=== PATIENT | male | born 1945 | race Caucasian/White ===

== ENCOUNTER 2016-09-29 11:12 | Inpatient (IN) | payer MEDICARE, OTHER ==
[~2016-09-29] VITALS: Ht 180.3 cm; Wt 102.3 kg
--- NOTE | ~2016-09-29 | CATH ---
Cardiac Diagnostic Report Demographics Patient Name JAZMYNE Richardson Gender Male Date of 1945 Age 71 year(s) Patient Number [id number] Date of Study 09/30/2016 Visit Number [id number] Room Number G6324 [place] [id number] Ht 180.34 cm Wt 110.22 kg Referring Cecelia Welsh Primary Physician Physician PA Performing Madina Joaquin MD Secondary Physician Physician Diagnostic Madina Joaquin MD Assisting Physician Physician Interventional Physician Artists' Booking Representative Physician Findings and Conclusions Diagnostic Findings and Conclusion Unable to cannulate ostium of RCA. This originates near the ostium of the left main. Diagnostic Recommendations CT surgery consult Procedure Description The patient was brought to the diagnostic cardiac catheterization-EP laboratory in the fasting, non-sedated state. Informed consent was obtained in the written and verbal form after the risks and benefits were explained. The patient had no further questions and agreed to proceed. The planned puncture-incision site(s) were shaved and prepped with Chloroprep and draped in the usual sterile manner. Conscious sedation and pain control medications were delivered by a registered nurse under physician guidance. Surface ECG rhythm, blood pressure measurement, and pulse oximetry were monitored throughout the procedure. A guiding catheter was used to attempt to intubate the vessel. Multiple unsuccessful attempts were made and procedure was aborted. Hemostasis: The sheath was removed and a closure device was placed. Hemostasis was achieved. The patient was transferred to the nursing floor with continuous monitoring via cart accompanied by a nurse. The patient left the laboratory in stable condition. Diagnostic Cath Status: Urgent Procedure Procedure Type Diagnostic procedure:Angiography:, Coronary Angios Indications: NSTEMI. The procedure was explained in detail to the patient. Risks, complications and alternative treatments were reviewed. Written consent was obtained. Medications Reviewed with Patient prior to Procedure. Procedure Data Procedure Date Date: 09/30/2016Start: 01:58 PMEnd: 03:04 PM Entry Locations - Retrograde Percutaneous access was performed through the Right Femoral artery (Primary location). A 6 Fr sheath was inserted. Hemostasis was successfully obtained using Perclose ProGlide (Paz). Closure Comments: deployed by rosa elena . Procedure Medications Order and Administration + + +-------+------+ !Time !Medication !Dosage !Route ! + + +-------+------+ !09/30/2016 02:12 PM !Fentanyl !50 mcg !I.V. ! + + +-------+------+ !09/30/2016 02:20 PM !Versed !1 mg !I.V. ! + + +-------+------+ Devices Used - A6 Fr. 3DRC JJ Guide Catheterwas used for:RCA Intervention. - A6FR ART 3.5 [facility] GUIDE CATH ()was used for:Right coronary angiography. - ACATH 6F AL2 CATHETER 100CMwas used for:RCA Intervention. - A6 Fr. AL1 Guide Catheterwas used for:RCA Intervention. - A6 Fr. XB 3.5 Guide Catheterwas used for:RCA Intervention. - A6 Fr. JL 4 JJ Guide Catheterwas used for:RCA Intervention. - A6 Fr. AL .75 JJ Guide Catheterwas used for:RCA Intervention. Contrast Material - Isovue 633724 ml Fluoroscopy Time: Diagnostic: 23:48 minutes. Total: 23:48 minutes. Fluoroscopy Dose: Diagnostic: 2047 mGy. Total: 2047 mGy. Estimated Blood Loss: 4 ml. Additional ACC PCI Information PCI Indication:PCI for high risk Non-STEMI or unstable angina. Medical History Performed Procedures and Imaging Results - No ACC stress or imaging studies were performed. Allergies - No known allergies. Risk Factors The patient risk factors include:prior PCI on 08/03/2010;obesity, physical activity, hypercholesterolemia, hypertension, last creatinine: 1 mg/dl, creatinine clearance: 102.57 ml/min and dyslipidemia. Admission Data Admission Date: 09/29/2016 Admission Time: 11:12 AM Admit Source: [facility] Insurance Payors: Medicare. Admission Medications + +------+-------+ + + + + !Medication!Dosage!Times !Last !Last !Administered !Comments ! ! ! !Per Day!Delivery !Delivery ! ! ! ! ! ! !Date !Time ! ! ! + +------+-------+ + + + + !Statin ! ! ! ! ! ! ! !(any) ! ! ! ! ! ! ! + +------+-------+ + + + + !Aspirin ! ! ! ! ! ! ! !(any) ! ! ! ! ! ! ! + +------+-------+ + + + + Clinical Evaluation Leading to Procedure - The patient's CAD presentation was assessed as: Non-STEMI.The symptom onset was first noted on 09/29/2016 09:00 AM(time was estimated). - The patient's anginal syndrome during the past two weeks was assessed as: Class IV according to the [place] Cardiovascular Society Classification System (CCS). Hemodynamics Condition: Rest O2 Consumption: Estimated: 263.33Heart Rate: 69 bpm Pressures (mmHg) +-----+ + !Site !Pressure ! +-----+ + !AO !138/76 (103) ! +-----+ + Shunts Oxygen Values O2 Capacity 198.56 O2 Consumption 263.33 Discharge Data Discharge Date: 10/07/2016 Hospital Status: Inpatient Signatures dtt: Jemal Painter (cardio) dtd: 09/30/16 1358 Physician Self Edit
--- NOTE | ~2016-09-29 | ENPV ---
Vascular Lower Extremity Vein Mapping Procedure Demographics Patient Name CRISTINE SAMANO Date of Study 10/02/2016 Patient Number [id number] Gender Male Date of 1945 Age 71 Visit Number [id number] Height 71 Accession Number [id number] Weight 243 Referring Karin Andino MD Physician Physician Physician Ordering Physician Photo Lab Manager Tobacco Shaker Chichi Okeefe [facility] Conclusions Summary Greater Saphenous vein patent and appropriate for harvest bilaterally Procedure Type of Study: Veins:Lower Extremity Vein Mapping, Vein Mapping NH. Indications for Study:Pre-op CABG. Appropriate Use Criteria:8 Allergies - No known allergies. Patient Status:Routine. Study Location:Inpatient Portable. Technical Quality:Adequate visualization. Risk Factors - The patient's risk factor(s) include: dyslipidemia, obesity, lack of physical activity and arterial hypertension. - The patient's last creatinine was 1 mg/dl. Velocities are measured in cm/s ; Diameters are measured in cm + ++--------++--------+ !Superficial - Great Saphenous Vein !!Right !!Left ! + ++--------++--------+ !Location !!Diameter!!Diameter! + ++--------++--------+ !Sapheno Femoral Junction !!0.41 !!0.47 ! + ++--------++--------+ !GSV High Thigh !!0.43 !!0.45 ! + ++--------++--------+ !GSV Mid Thigh !!0.43 !!0.43 ! + ++--------++--------+ !GSV Low Thigh !!0.29 !!0.44 ! + ++--------++--------+ !GSV Knee !!0.24 !!0.32 ! + ++--------++--------+ !GSV High Calf !!0.25 !!0.29 ! + ++--------++--------+ !GSV Mid Calf !!0.2 !!0.28 ! + ++--------++--------+ !GSV Low Calf !!0.2 !! ! + ++--------++--------+ Signature dtt: CAROLIN DUNN dtd: 10/02/16 1248 Physician Self Edit
--- NOTE | ~2016-09-29 | HP ---
PATIENT'S NAME: CRISTINE SAMANO [facility] AGE: 71 Y [address] ROOM: [address] [place] [address] LOCATION: GPCU ADMIT DATE: 09/29/2016 History & Physical DISCHARGE DATE: FAMILY PHYSICIAN: Physician, Unknown ATTENDING PHYSICIAN: Jemal Painter DATE OF SERVICE: HISTORY OF PRESENT ILLNESS: This is a 71-year-old male who normally follows cardiology care with Dr. Jemal Painter for his history of coronary artery disease with a previous stent placed to his LAD in 2010 as well as paroxysmal atrial fibrillation with sotalol and Pradaxa use and hypertension and hyperlipidemia. The patient awoke this morning with complaints of sharp substernal chest pain with radiation noted to his back and his left arm. Due to this pain which did persist he presented to the emergency department in [place], [place] and was found to be having an inferior ST elevated myocardial infarction with ST elevations noted in leads II, III, and aVF. Due to his concerning symptoms and EKG changes, plan was made to transfer him to [facility] for coronary percutaneous intervention. He did complain also of some nausea and diaphoresis associated with his chest pain especially when he was in the emergency department at [place]. Also of note, he has been having recovery from a recent upper respiratory infection and is currently completing antibiotics. When questioned about his chest pain symptomatology, he states he had no chest pain of this sort prior to his previous coronary stenting. He admitted to only having fatigue and shortness of breath prior to his LAD stenting in 2010. At the time of this dictation, the patient is currently status post selective coronary angiography without intervention. He is pain-free and did have ST resolution noted with IV heparin as well as Integrilin. Plan is to proceed with coronary intervention in the morning to the RCA by Dr. Jemal Painter. PAST MEDICAL HISTORY: 1. Coronary artery disease with LAD stenting in 2010. 2. Hypertension. 3. Hyperlipidemia. 4. Paroxysmal atrial fibrillation with long-term anticoagulation on Pradaxa. 5. Nocturnal hypoxemia with previous sleep study but does not currently have a CPAP machine. 6. Previous kidney stones. 7. Joint stiffness and osteoarthritis. 8. GERD. 9. Insomnia. PAST SURGICAL HISTORY: 1. Coronary artery stenting. [facility] AGE: 71 Y [address] ROOM: G6[address] [place], [place] [address] LOCATION: GPCU ADMIT DATE: 09/29/2016 History & Physical DISCHARGE DATE: FAMILY PHYSICIAN: Physician, Unknown ATTENDING PHYSICIAN: Jemal Painter 2. Tonsillectomy. 3. Inguinal hernia repair. 4. Cystoscopy for kidney stones. 5. Cholecystectomy. 6. Right foot surgery after a lawnmower accident. 7. Left total knee arthroplasty. FAMILY HISTORY: The patient's mother had a history of hypothyroidism and is still alive at the age of 99. His father had a history of myocardial infarction as well as liver cancer. He has one sister with a history of brain tumor. SOCIAL HISTORY: The patient denies ever using tobacco. He also denies alcohol or illicit drug use. HOME MEDICATIONS: 1. Aspirin 81 mg p.o. daily. 2. Lumigan 0.01% intraophthalmically to both eyes daily in the evening. 3. Vitamin D3, 400 units p.o. daily. 4. Pradaxa 150 mg p.o. twice daily. 5. Doxycycline 100 mg p.o. twice daily for two weeks and was started on 09/16/2016. 6. Lisinopril 10 mg p.o. daily. 7. Fish oil 300 mg p.o. daily. 8. Prilosec 20 mg p.o. twice daily. 9. Zoloft 50 mg p.o. daily. 10. Betapace 120 mg p.o. daily in the evening. 11. Betapace 80 mg p.o. daily in the morning. 12. Flomax 0.4 mg p.o. daily. 13. CoQ10, 200 mg p.o. daily. 14. Ocuvite 1 tablet p.o. daily. 15. Ambien 10 mg p.o. daily in the evening. MEDICATION ALLERGIES: Include penicillin and sulfa, which causes stomach cramps. REVIEW OF SYSTEMS: Pertinent positive review of systems listed in the HPI. All other review of systems evaluated and negative. PHYSICAL EXAMINATION: VITAL SIGNS: Temperature 98.0, pulse 66, respirations 16, blood pressure 164/86, O2 saturation 95% on room air. The patient weighs 102.9 kg. SKIN: [place], warm, and dry. PATIENT'S NAME: CRISTINE SAMANO [facility] AGE: 71 Y [address] ROOM: [address] [place], [place] [address] LOCATION: GPCU ADMIT DATE: 09/29/2016 History & Physical DISCHARGE DATE: FAMILY PHYSICIAN: Physician, Unknown ATTENDING PHYSICIAN: Jemal Painter EYES: Sclerae clear. No xanthelasmas. ENT: Oral mucosa is pink and moist. No jugular venous distention or carotid bruits. CHEST: Respirations are even and unlabored. Lungs are clear to auscultation. HEART: Regular rate and rhythm. Normal S1, S2. No murmurs, rubs, or gallops. ABDOMEN: Soft and nontender. MUSCULOSKELETAL: Gait is normal. EXTREMITIES: Peripheral pulses palpable. No clubbing, cyanosis, or edema. PSYCH: Alert and oriented. Mood and affect are appropriate. IMPRESSION AND PLAN: Per Dr. Montgomery. 1. Acute inferior ST elevated myocardial infarction. The patient was unable to receive intervention to his right coronary artery lesion due to his RCA originating from the left. Plan will be to proceed with a repeat catheterization with possible percutaneous intervention in a.m. by Dr. Jemal Painter who once again is his primary post acute care registered nurse. The patient will be continued on heparin drip per ACS protocol, and we will trend cardiac enzymes including CPK, CK-MB, and troponin every 6 hours x4 values. We will check another EKG in the a.m. and start him on Brilinta 90 mg p.o. twice daily, aspirin 81 mg daily, Lipitor 80 mg p.o. daily. Of note, the patient does have an intolerance to statins that cause muscle aches. We will fully evaluate the patient for his history of myalgias and attempt to find a statin that works well for his coronary artery disease as well as prevents symptoms. We will also collaborate with Dr. Jemal Painter in attempting to facilitate this medication management. We will check another lipid panel in the a.m. as well as a TSH and a proBNP. 2. Coronary artery disease with a history of LAD stenting. 3. Hypertension. 4. Hyperlipidemia. 5. Paroxysmal atrial fibrillation. The patient is currently in a sinus rhythm. He does continue to take his sotalol and did take his anticoagulant Pradaxa this morning. We will hold his Pradaxa for now since we are continuing his heparin drip for anticoagulation. The care of this patient will be taken over in the a.m. by Dr. Jemal Painter. We will continue to monitor, evaluate, and treat as appropriate until that transition of care has occurred. Thank you for allowing [facility] to interact in the care of this patient. PATIENT'S NAME: CRISTINE SAMANO [facility] AGE: 71 Y [address] ROOM: G[address] [place], [place] [address] [facility] AD[facility] DATE: 09/29/2016 History & Physical DISCHARGE DATE: FAMILY PHYSICIAN: Physician, Unknown ATTENDING PHYSICIAN: Jemal Painter LINDA SERRATO APRN FOR VIRIDIANA-MD SHERRIE CHAVARRIA/janetl /[id number] D: [id number] T: [id number] HISTORY & PHYSICAL
--- NOTE | ~2016-09-29 | DS ---
PATIENT'S NAME: CRISTINE SAMANO [facility] AGE: 71 Y [address] ROOM: G[address] [place], [place] [address] LOCATION: GPCU ADMIT DATE: 09/29/2016 Discharge Summary DISCHARGE DATE: 10/07/2016 FAMILY PHYSICIAN: Reji Moses MD ATTENDING PHYSICIAN: Jamie Calle The patient is a 71-year-old white male who is followed by Dr. Painter secondary to his history with coronary artery disease with previous percutaneous intervention and stenting as well as paroxysmal atrial fibrillation. The patient was transferred here after presenting to the [place] Department with an acute inferior ST-elevated myocardial cardial infarction. Dr. Montgomery was on-call. The patient went to the catheterization lab with Dr. Montgomery for possible intervention. Dr. Montgomery did attempt intervention to the right coronary artery. However, the RCA originated from the left, and he was unable to proceed. The patient was transferred up to the progressive care floor on the ACS protocol with plans for Dr. Painter to proceed with catheterization the following morning for possible percutaneous intervention. Once again, intervention to the RCA was attempted and failed. Therefore, Dr. Calle was asked to see the patient in consultation for coronary artery bypass grafting consisted of one vessel bypass to the RCA. On 10/03/2016, the patient was taken to the operative suite by Dr. Calle for a single-vessel bypass with a reverse saphenous vein graft to the posterior descending artery performed in an off pump fashion. The patient tolerated the surgery without complication. He was transferred to the ICU following the procedure. He was extubated without difficulty on the same operative day. On postoperative day 1, the patient's lines were discontinued, and he was transferred to the progressive care floor. The patient worked with cardiac rehab for strengthening purposes. His chest tubes, pacemaking wires, and Maguire catheter were discontinued in the routine postoperative timeframe. The patient was restarted on his Pradaxa secondary to his chronic atrial fibrillation as well as his sotalol. The patient was noted to have a right forearm phlebitis. Antibiotic therapy was started empirically. The patient did have short runs of on and off atrial fibrillation, but overall remained in sinus rhythm with premature atrial contractions. He had no healing complications. He was found stable for discharge on 10/07/2016. The patient requested no home health services or skilled stay. The patient was discharged on 10/07/2016. DISCHARGE ORDERS: Include a cardiac prudent diet. Activity levels with no pulling, pushing, or lifting heavier than 10 pounds until November 14, 2016. The patient will start cardiac rehab in his area in a couple of weeks. He will follow up with Dr. Calle and Dr. Painter in 2 weeks on the same day. PATIENT'S NAME: CRISTINE SAMANO [facility] AGE: 71 Y [address] ROOM: G[address] [place], [place] [address] LOCATION: GPCU ADMIT DATE: 09/29/2016 Discharge Summary DISCHARGE DATE: 10/07/2016 FAMILY PHYSICIAN: Reji Moses MD ATTENDING PHYSICIAN: Jamie Calle FINAL DIAGNOSES: Include, 1. ST-elevation myocardial infarction. 2. Hypertension. 3. Dyslipidemia. 4. Paroxysmal atrial fibrillation, long-term anticoagulation, high-risk medications. 5. Obstructive sleep apnea - not using CPAP. 6. Myalgias, on statins. HOME MEDICATIONS: 1. Ambien 10 mg q.h.s. 2. Pradaxa 150 mg twice a day. 3. Zoloft 50 mg daily. 4. Lisinopril 2.5 mg daily. 5. Betapace 80 mg twice a day. 6. Flomax 0.4 mg daily. 7. Lumigan 0.01% one drop nightly each eye. 8. Aspirin 81 mg daily. 9. CoQ10, 200 mg daily. 10. Vitamin D 400 units daily. 11. Prilosec 20 mg twice a day. 12. Ocuvite one capsule daily. 13. Fish oil 300 mg daily. 14. Keflex 500 mg 3 times a day. 15. Colace 100 mg twice a day. 16. Lasix 40 mg daily. 17. Potassium chloride 20 mEq twice a day. 18. [place] 5/325 one to two every 4 to 6 hours as needed. The patient and verbalized understanding of the discharge orders. The patient was discharged to home in stable condition. DENILSON JOSHI APRN FOR JAMIE CALLE DO DLQ/modl /[id number] d: 10/21/16 0343 t: 10/24/16 1435, DISCHARGE SUMMARY
--- NOTE | ~2016-09-29 | OR ---
PATIENT'S NAME: CRISTINE TIJERINA [facility] AGE: 71 Y [address] ROOM: G[address] [place], [place] [address] LOCATION: GPCU ADMIT DATE: 09/29/2016 OR/Procedure Report DISCHARGE DATE: FAMILY PHYSICIAN: Reji Moses MD ATTENDING PHYSICIAN: Jemal Painter SURGEON: Jamie Frazier DO VINEYARD TENDER: DATE OF PROCEDURE: 10/03/2016 PREOPERATIVE DIAGNOSIS: Right coronary artery disease with failed percutaneous intervention. POSTOPERATIVE DIAGNOSIS: Right coronary artery disease with failed percutaneous intervention. PROCEDURE: Single vessel bypass with reverse saphenous vein graft to the posterior descending artery performed in an off pump fashion. BRIEF HISTORY: Mr. Tijerina is a 71-year-old white male with a history of coronary artery disease. He presented to [facility] with acute ST-segment myocardial infarction secondary to the right coronary artery. He was taken to the cathode washer in a code STEMI fashion. Dr. Montgomery performed the 1st catheterization on the , however, was unsuccessful in opening of the right coronary artery. He was admitted to the floor, maintained on a heparin drip, and Dr. Painter attempted another catheterization on the right coronary artery and again was unsuccessful; therefore, we were asked to perform single vessel bypass. DESCRIPTION OF PROCEDURE: The patient had been brought to the operative suite today, sterilely prepped and draped in usual fashion. A sternal incision was made, and the sternum was divided in midline with a sternal saw. The pericardium was then opened and the right coronary system inspected. There was no evidence of dissection in epicardial fat. The coronary artery, however, was diffusely diseased and this disease extended onto the inferior wall of the heart and into the bifurcation. The posterior descending artery appeared suitable for grafting, however, I did not feel that the right internal mammary artery would reach this and therefore we harvested a single segment of the vein endoscopically from the lower extremity during this time. A pericardial well was created, and once of the vein was harvested, heparin was given. The vein was then prepared for bypass. Off-pump retractor/stabilizer was placed over the posterior descending artery. The patient was placed into a Trendelenburg position to facilitate visualization and retracted tapes were used to isolate the artery. The artery was then opened and #2 shunt placed. The retractor tapes were then removed and flow was resumed. We then anastomosed the vein graft to the coronary artery in an PATIENT'S NAME: CRISTINE TIJERINA [facility] AGE: 71 Y [address] ROOM: G[address] [place], [place] [address] LOCATION: GPCU ADMIT DATE: 09/29/2016 OR/Procedure Report DISCHARGE DATE: FAMILY PHYSICIAN: Reji Moses MD ATTENDING PHYSICIAN: Jemal Painter end-to-side fashion with 7-0 Prolene. With this nearly completed, the shunt was removed and the anastomosis was completed. The anastomosis was intact. The stabilizer was removed, and the heart returned to its anatomic position. The patient returned back to a supine position. We then utilized a 4.3 heartstring and 6-0 Prolene to anastomose the graft to the ascending aorta. When pulling the heartstring, it had been looped with 6-0 Prolene and this could not be removed without damage to the suture, therefore a partial occlusion clamp was removed what was placed, and we were re-did the anastomosis with 6-0 Prolene. Once this was completed, the partial occlusion clamp was removed. The vein graft was de-aired, Bulldogs removed, and distal flow was given. Distal sites and proximal sites were hemostatic. The patient tolerated the procedure well throughout. Two atrial and one ventricular temporary pacemaking wires were placed. Three chest tubes were placed, 1 in left pleural, 1 in posterior pericardial, 1 in anterior mediastinum, and the sternum was then approximated with ZipFix System. We then closed the soft tissues in a layered fashion. All sponge, instrument, and needle counts were correct. The patient was transferred to the Intensive Care Unit in stable condition. DO DANIKA VAIL/madi /[id number] d: 10/05/161853 t: 10/05/162040, OPERATIVE SUMMARY
--- NOTE | ~2016-09-29 | CATH ---
Cardiac Diagnostic Report Demographics Patient Name JAZMYNE Richardson Gender Male Date of 1945 Age 71 year(s) Patient Number [id number] Date of Study 09/29/2016 Visit Number [id number] Room Number G6306 [place] [id number] Ht 180.34 cm Wt 110.22 kg Referring Cecelia Blaise Primary Physician Physician ILIR Performing Efstratiou Secondary Physician Physician Sulma Camacho MD Diagnostic Efstratiou Assisting Physician Physician Sulma Camacho MD Interventional Physician Senior Mobile Developer Physician Findings and Conclusions Diagnostic Findings and Conclusion Culprit for STEMI is RCA that has recanalized with heparin and integrillin. 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 Previous LAD stents are patent. Diagnostic Recommendations PCI to RCA. Unable to cannulate RCA from a radial approach. Heparin and Brilinta overnight. Attempt by groin approach in morning. Procedure Description The patient was brought to the diagnostic cardiac catheterization-EP laboratory by emergency personal. Physician deemed procedure as EMERGENT. The planned puncture-incision site(s) were shaved and prepped with ChloraPrep and draped in the usual sterile manner. Supplemental oxygen was delivered by a registered nurse under physician guidance. Surface ECG rhythm, blood pressure measurement, and pulse oximetry were monitored throughout the procedure. Arterial access. The access site was infiltrated with lidocaine. The vessel was entered with the Seldinger technique. A sheath was advanced into the vessel and used for catheter placement. Selective left coronary angiography. A catheter was advanced into the left coronary vessel ostium under Fluoroscopic guidance. Contrast was injected by hand. Images were obtained in multiple projections. Selective right coronary angiography. A catheter was advanced into the right coronary vessel ostium under fluoroscopic guidance. Contrast was injected by hand. Images were obtained in multiple projections. Arterial artery hemostasis was achieved. The patient was transferred to PCU via bed accompanied by a nurse. The patient left the laboratory in stable condition. Diagnostic Cath Status: Emergency Procedure Procedure Type Diagnostic procedure:Angiography:, Coronary Angios Indications: Acute inferior FL. Angiographic Findings Dominance: Right Cardiac Arteries and Lesion Findings LMCA: Patent. LAD: 20% proximal stenosis. Distal stents patent. 40% stenosis distal to stent. Patent diagonal. Lesion on Prox LAD: Proximal subsection.20% stenosis . Lesion on Dist LAD: Distal subsection.40% stenosis . Comments:Distal to existing stent. LCx: Lesion on Prox CX: Mid subsection.20% stenosis . Lesion on 1st Ob Abby: Mid subsection.30% stenosis . RCA: 90% mid stenosis. Ectopic origin from left coronary sinus. Lesion on Mid RCA: Mid subsection.90% stenosis .Culprit lesion. Coronary Tree Procedure Data Procedure Date Date: 09/29/2016Start: 12:24 PMEnd: 01:34 PM Entry Locations - Antegrade Percutaneous access was performed through the Right Radial artery (Primary location). A 6 Fr sheath was inserted. Unsuccessful closure attempt was performed using: a TR band. Hemostasis was successfully obtained using Mechanical Compression. Closure Comments: 10 ml of air in R. Band by Yanira Coronado. Procedure Medications Order and Administration + + +--------+ + !Time !Medication !Dosage !Route ! + + +--------+ + !09/29/2016 !Oxygen !2 l/min !NC ! !12:22 PM ! ! ! ! + + +--------+ + !09/29/2016 !PAE Radial Cocktail: Heparin 5000 units,! !I.A. ! !12:27 PM !Nitroglycerin 200mcg, Verapamil 3 mg ! ! ! ! !(ACC_3) ! ! ! + + +--------+ + !09/29/2016 !Heparin (ACC_3) !2000 !I.V. bolus! !12:41 PM ! !units ! ! + + +--------+ + !09/29/2016 !Brilinta (Ticagrelor) (ACC_20) !180 mg !P.O. ! !01:17 PM ! ! ! ! + + +--------+ + Devices Used - A6 Fr. BS JL 3.5 Diag. Catheterwas used for:Left coronary angiography. Comments: Able to cannulate RCA as well.. - A6 Fr. JJ 3DRC Diag. Catheterwas used for:RCA Intervention.Unable to cannulate the vessel. - A6 Fr. AL1 Guide Catheterwas used for:RCA Intervention.Unable to cannulate the vessel. - A6 Fr. JL3.5 Guide Catheterwas used for:RCA Intervention.Unable to cannulate the vessel. - A6 Fr. AR1 guide catheterwas used for:RCA Intervention.Unable to cannulate the vessel. - AGUIDE CATHETER 6FR MP 1 100CMwas used for:RCA Intervention.Unable to cannulate the vessel. - A6 Fr. BS JL 3.5 Diag. Catheterwas used for:RCA Intervention. Comments: Able to cannulate RCA as well.. - A6 Fr. JL3.5 Guide Catheterwas used for:RCA Intervention.Unable to cannulate the vessel. - A6 Fr. BS JR 4 Diag. Catheter. Comments: Discard.. Contrast Material - Isovue [id number] ml Fluoroscopy Time: Diagnostic: 24:30 minutes. Total: 24:30 minutes. Fluoroscopy Dose: Diagnostic: 1836 mGy. Total: 1836 mGy. Estimated Blood Loss: 10 ml. Medical History Allergies - No known allergies. Risk Factors The patient risk factors include:prior PCI on 08/03/2010;obesity, hypercholesterolemia, hypertension, last creatinine: 1.1 mg/dl, creatinine clearance: 93.24 ml/min and dyslipidemia. Admission Data Admission Date: 09/29/2016 Admission Time: 11:12 AM Admit Source: [facility] Insurance Payors: Medicare. Admission Medications + +------+-------+ + + + + !Medication!Dosage!Times !Last !Last !Administered !Comments ! ! ! !Per Day!Delivery !Delivery ! ! ! ! ! ! !Date !Time ! ! ! + +------+-------+ + + + + !Statin ! ! ! ! ! ! ! !(any) ! ! ! ! ! ! ! + +------+-------+ + + + + !Aspirin ! ! ! ! ! ! ! !(any) ! ! ! ! ! ! ! + +------+-------+ + + + + Clinical Evaluation Leading to Procedure - The patient's CAD presentation was assessed as: STEMI.The symptom onset was first noted on 09/29/2016 09:00 AM(time was estimated). Snapshots Hemodynamics Condition: Rest O2 Consumption: Estimated: 270.98Heart Rate: 78 bpm Pressures (mmHg) +-----+ + !Site !Pressure ! +-----+ + !AO !103/68 (84) ! +-----+ + !AO !129/70 (95) ! +-----+ + Shunts Oxygen Values O2 Capacity 214.88 O2 Consumption 270.98 Signatures dtt: Luz Montgomery dtd: 09/29/16 1224 Physician Self Edit
--- NOTE | ~2016-09-29 | ECHO ---
Transthoracic Echocardiography Report (TTE) Demographics Patient Name CRISTINE SAMANO Date of Study 10/02/2016 Patient Number [id number] Visit Number [id number] Date of 1945 Room Number G6214 Accession Number [id number] Gender Male Age 71 year(s) Referring Madina Joaquin MD Outsole Scheduler Jennifer Fowler RVT Physician Josué Hays APRN Physician Interpreting Madina Joaquin MD Diesel Truck Technician Physician Supervising Ordering Physician Sage Hays MD/JOSEP RAND Nurse Stress Locksmith Apprentice Conclusions Contractility Score Summary Normal Left Ventricular contractility was noted. Summary The estimated left ventricular ejection fraction is 60%. Mild concentric left ventricular hypertrophy. Diastolic assessment reveals Grade I diastolic dysfunction. Mildly dilated right ventricle. The right atrium is mildly dilated. IVC not visualized due to poor subcostal window. Trivial pulmonic valve regurgitation by color Doppler. Procedure Type of Study TTE procedure:2D Echocardiogram, M-Mode, Doppler , Color Doppler. Procedure Date Date: 10/02/2016 Start: 11:08 AM Study Location: Inpatient Portable Technical Quality: Adequate visualization Indications:Preop cardiac evaluation. Appropriate Use Criteria: 9 Patient Status: Routine HR: 64 bpm BP: 107/65 mmHg Allergies - No known allergies. M-Mode/2D Measurements LV Diastolic Dimension: 4.08 cm LV Systolic Dimension: 2.72 cm LV Septum Diastolic: 1.77 cm LV PW Diastolic: 1.5 cm AO Root Dimension: 2.7 cm Cardiac Output: 3.39 l/min AV Cusp Separation: 1.9 cm RV Diastolic Dimension: 3.53 cm LVOT: 2.1 cm LVOT VTI: 15.3 cm RV Base: 2.94 cm LV Stroke volume: 52.97 ml RV Length: 6.5 cm TAPSE: 2.57 cm TDI-S': 14.5 cm/s Doppler Measurements AV Peak Velocity: 1.37 m/s MV Peak E-Wave: 0.54 m/s AV Peak Gradient: 7.51 mmHg MV Peak A-Wave: 0.75 m/s AV Mean Gradient: 4 mmHg MV E/A Ratio: 0.73 LVOT Peak Velocity: 0.74 m/s MV P1/2t: 106 msec PV Peak Velocity: 0.66 m/s E' Septal Velocity: 0.06 m/s PV Peak Gradient: 1.75 mmHg E' Lateral Velocity: 0.07 m/s A' Septal Velocity: 0.09 m/s A' Lateral Velocity: 0.1 m/s Findings Left Ventricle Mild concentric left ventricular hypertrophy. Diastolic assessment reveals Grade I diastolic dysfunction. Right Ventricle Mildly dilated right ventricle. Left Atrium Normal left atrial size. Right Atrium The right atrium is mildly dilated. IVC not visualized due to poor subcostal window. Mitral Valve Trivial mitral regurgitation by color Doppler. Aortic Valve There is trivial aortic regurgitation by color Doppler. Tricuspid Valve Mild tricuspid regurgitation by color Doppler. Pulmonic Valve Mild pulmonic valve regurgitation by color Doppler. Pericardial Effusion No evidence of pericardial effusion. Miscellaneous Visualized portions of the aortic root and ascending aorta appear normal in size. Pleural Effusion No evidence of pleural effusion. Contractility Score LV regional wall motion:(0-Non visualized 1-Normal 2-Hypokinesis 3-Akinesis 4-Dyskinesis 5-Aneurysm) Signature dtt: Jemal Painter (cardio) dtd: 10/02/16 1108 Physician Self Edit
--- NOTE | ~2016-09-29 | OR ---
PATIENT'S NAME: CRISTINE SAMANO [facility] AGE: 71 Y [address] ROOM: [address] [place], [place] [address] LOCATION: GICU ADMIT DATE: 09/29/2016 OR/Procedure Report DISCHARGE DATE: FAMILY PHYSICIAN: Reji Moses MD ATTENDING PHYSICIAN: Jemal Painter SURGEON: Kirill Garcia MD AUDIOVISUAL TECHNICIAN: DATE OF PROCEDURE: 10/03/2016 PROCEDURES PERFORMED: 1. Right radial arterial line. 2. Central venous catheter. 3. Transesophageal echocardiography. INDICATIONS FOR PROCEDURE: The patient is undergoing coronary artery bypass grafting with need for IV access volume assessment, vasopressors oqkh-[id number] pressure monitoring, and evaluation of cardiac function. DESCRIPTION OF PROCEDURES: 1. The patient was identified in [facility]. The risks, benefits, and alternatives were explained to the patient. He wished to proceed. The right arm was extended out at 90 degrees. The radial artery was easily palpated. The area was cleaned with chlorhexidine 2%, and a 20-gauge Arrow catheter was inserted using the Seldinger technique with a single stick. Bright red pulsatile blood was found on return, and the catheter was secured into place. Complications; none. Blood loss; none. 2. After induction of general anesthesia, the patient was lying supine on the operating room table in slight Trendelenburg position. Maximal sterile barriers were worn all times. The right neck and chest were prepped with chlorhexidine 2%. A full body drape was placed. Sterile gloves, gown, and mask were worn. Ultrasound was used to visualize the right internal jugular vein. With a single stick and with ultrasound guidance, dark nonpulsatile blood was found on return. The wire was threaded without difficulty. The ultrasound was used to visualize the wire in the internal jugular vein. This skin nicked, dilated, and a 9- Icelandic, 10 cm catheter was placed and the wire removed. Complications; none. Blood loss; none. 3. After induction of general anesthesia, placement of central line, the transesophageal probe was placed atraumatically. Please see saved images and the report for further details. it showed a preserved ejection fraction around 55%. There was no pericardial effusion noted. The aortic valve was trileaflet with mild sclerosis. There was no aortic stenosis or aortic regurgitation, and the leaflets moved appropriately. The mitral valve had some trace regurgitation. Otherwise, no stenosis was noted. There is no atrial septal defect. There is no ventral septal PATIENT'S NAME: CRISTINE SAMANO [facility] AGE: 71 Y [address] ROOM: [place] [address] LOCATION: GICU ADMIT DATE: 09/29/2016 OR/Procedure Report DISCHARGE DATE: FAMILY PHYSICIAN: Reji Moses MD ATTENDING PHYSICIAN: Jemal Painter. There is minimal atherosclerosis of the ascending and aorta and the arch. Maximum ascending diameter was approximately 3.4 cm. The exam was unchanged after coronary artery bypass grafting. KIRILL GARCIA MD JJP/modl /[id number] d: 10/03/162052 t: 10/19/16 1053, OPERATIVE SUMMARY
--- NOTE | ~2016-09-29 | CON ---
PATIENT'S NAME: CRISTINE SAMANO [facility] AGE: 71 Y [address] ROOM: [place] [address] LOCATION: GPCU ADMIT DATE: 09/29/2016 Consultation DISCHARGE DATE: 10/07/2016 FAMILY PHYSICIAN: Reji Moses MD ATTENDING PHYSICIAN: Jamie Calle DATE OF CONSULTATION: 09/30/2016 REFERRING PHYSICIAN: Jamie Calle DO CONSULTATION NOTE REQUESTING PHYSICIAN: Luz Montgomery MD REASON FOR CONSULTATION: Single-vessel coronary artery disease. HISTORY OF PRESENT ILLNESS: The patient is a 71-year-old, white male, cardiac patient of Dr. Painter, who was transferred here from the [place] [facility] after having an acute inferior STEMI. The patient has a history of known coronary artery disease with previous stenting to the LAD back in 2010. The patient had woke up in the morning with sharp substernal chest pain with back and left arm radiation as well as nausea and diaphoresis. This prompted his presentation to the [place] [facility]. He was transferred under the care of Dr. Montgomery, who is covering Cardiology for [facility]. He was taken to the catheterization lab as a Code STEMI. Dr. Montgomery performed the cardiac catheterization on the day of transfer, however, he was unsuccessful in opening the right coronary system as it did originate from the left. The patient was then transferred up to the floor, maintained on a heparin drip, and on the following day, Dr. Painter attempted a further cardiac catheterization in order to intervene on the right coronary artery. This, however, was unsuccessful, and Dr. Calle was asked to see the patient in consultation for a single-vessel bypass. PAST MEDICAL HISTORY: Illnesses: 1. Coronary artery disease. 2. Paroxysmal atrial fibrillation. 3. High-risk medications with sotalol and Pradaxa. 4. Hypertension. 5. Dyslipidemia. 6. Osteoarthritis. 7. Nighttime hypoxia. 8. Also GERD. PATIENT'S NAME: CRISTINE SAMANO [facility] AGE: 71 Y [address] ROOM: [place] [address] LOCATION: GPCU ADMIT DATE: 09/29/2016 Consultation DISCHARGE DATE: 10/07/2016 FAMILY PHYSICIAN: Reji Moses MD ATTENDING PHYSICIAN: Jamie Calle PAST SURGICAL HISTORY: Surgery/Procedures: 1. Percutaneous intervention with stent to the LAD, 2010. 2. Tonsillectomy. 3. Inguinal hernia repair. 4. Cholecystectomy. 5. Left total knee arthroplasty. 6. Right foot surgery. ALLERGIES: WHICH ARE MORE INTOLERANCES ARE PENICILLIN, SULFA WHICH CAUSES STOMACH CRAMPS, AND STATINS FOR WHICH THE PATIENT HAS MYALGIAS. SOCIAL HISTORY: The patient is . He and his reside in [place]. 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 He is a nonsmoker and non-alcohol consumer. FAMILY HISTORY: His mother is still alive. She is 99 years old. She does have a history of hypothyroidism. His father had a history of heart disease including a myocardial infarction and from liver cancer. He had a sister with a brain tumor. MEDICATIONS: Please see medication administration record. REVIEW OF SYSTEMS: Pertinent positives are noted as per HPI. Other review of systems are otherwise reviewed and negative. PHYSICAL EXAMINATION: VITAL SIGNS: Blood pressure 125/71, heart rate 75, respirations 18, temperature 98.1, and O2 saturations 93%. Weight is 102.9 kg, height is 180.3 cm. GENERAL: He is very pleasant. In no acute distress. The patient appears his stated age. HEENT: Normocephalic with EOMIs intact. Conjunctivae clear. LUNGS: Clear to auscultation bilaterally. CARDIOVASCULAR: Regular rate and rhythm with no murmur detected. ABDOMEN: Soft, obese, and nontender by 4 quadrants with positive bowel sounds throughout. EXTREMITIES: No overt varicosities or edema. MUSCULOSKELETAL: Good range of motion to bilateral upper and lower extremities. PATIENT'S NAME: CRISTINE SAMANO [facility] AGE: 71 Y [address] ROOM: [place] [address] LOCATION: GPCU ADMIT DATE: 09/29/2016 Consultation DISCHARGE DATE: 10/07/2016 FAMILY PHYSICIAN: Reji Moses MD ATTENDING PHYSICIAN: Jamie Calle NEUROLOGIC: Alert and oriented. Strength is symmetrical. LABORATORY DATA: Laboratory and test results are as per HPI. IMPRESSION: 1. Acute inferior ST-elevation myocardial infarction. 2. Paroxysmal atrial fibrillation. 3. High-risk medications. RECOMMENDATIONS AND PLAN: Dr. Calle spoke to the patient and his family with regard to a single-vessel coronary artery bypass grafting surgery to the RCA utilizing a saphenous vein graft, possible MANUEL if it will reach. We will likely plan for an off-pump procedure. Risks and benefits of the surgery were discussed. Discussion of the risks include, but were not limited to, bleeding, requiring transfusion; return to the operative suite; myocardial infarction; cerebrovascular accident; renal and/or pulmonary failure. Also discussed were arrhythmias and infection as well as operative and postoperative mortality. The patient does consent to proceed with surgery. We will plan for the procedure on 10/03/2016. We would like to thank Dr. Montgomery and Dr. Painter for allowing us to participate in the care of this very pleasant gentleman. DENILSON JOSHI APRN FOR JAMIE CALLE, DLQ/modl /[id number] d: 10/14/16 2255 t: 10/19/16 1443, CONSULTATION REPORT
[2016-09-29 14:16] LABS: BASOPHIL # 0.1 K/uL (0.0-0.2); EOSINOPHIL # 0.2 K/uL (0.0-0.5); EOSINOPHIL % 2.1 %; HEMATOCRIT 45.6 % (37.0-53.0); HEMOGLOBIN 14.6 g/dL (11.0-16.0); IMMATURE GRANULOCYTE # 0.1 K/uL (0.0-0.3); IMMATURE GRANULOCYTE % 1.1 %; LYMPHOCYTE # 2.3 K/uL (0.8-4.0); MCH 29.1 pg (27.0-34.0); MONOCYTE # 0.8 K/uL (0.0-1.0); MONOCYTE % 8.6 %; MPV 10.6 fl (9.4-12.4); NEUTROPHIL # (ANC) 5.7 K/uL (1.4-9.0); NEUTROPHIL % 62.2 %; NRBC % 0 /100WBC (0-0.00); PLATELET COUNT 186 K/uL (150-450); RBC 5.01 M/uL (3.50-5.50); RDW-CV 14.5 % (11.9-14.6); WBC 9.1 K/uL (4.0-11.0)
[2016-09-29] MEDS ORDERED: DOXYCYCLINE100 MG (14:16)
[2016-09-29] MEDS ORDERED: AMBIEN10 MG PO (14:17)
[2016-09-29] MEDS ORDERED: PRADAXA150 MG PO (14:18)
[2016-09-29] MEDS ORDERED: ZOLOFT50 MG PO (14:26)
[2016-09-29] MEDS ORDERED: ZESTRIL2.5 MG PO (14:27)
[2016-09-29] MEDS ORDERED: BETAPACE (GENER80 MG PO (14:27)
[2016-09-29] MEDS ORDERED: FLOMAX0.4 MG PO (14:28)
[2016-09-29] MEDS ORDERED: BETAPACE (GENER80 MG (14:28)
[2016-09-29] MEDS ORDERED: LUMIGAN 0.01%2.5 ML OPHTH (14:29)
[2016-09-29] MEDS ORDERED: ASPIRIN LO-DOSE81 MG PO (14:31)
[2016-09-29] MEDS ORDERED: VITAMIN D-40400 UNIT PO (14:32)
[2016-09-29] MEDS ORDERED: COQ-10100 MG PO (14:32)
[2016-09-29] MEDS ORDERED: OCUVITE SOFTGE1 EACH PO (14:33)
[2016-09-29] MEDS ORDERED: PRILOSEC20 MG PO (14:33)
[2016-09-29] MEDS ORDERED: FISH OIL300 MG PO (14:34)
[2016-09-29 15:50] LABS: PTT > 260 SECONDS (23-30)
[2016-09-29 15:51] LABS: INR - (THERAPEUTIC) 1.1 (0.9-1.1)
[2016-09-29 18:35] LABS: ANION GAP 14.8 (10.0-19.0); BLOOD UREA NITROGEN 17 mg/dL (6-24); CALCIUM 8.5 mg/dL (8.5-10.5); CHLORIDE 108 mMol/L (96-110); CO2 22 mMol/L (22-32); CREATININE 0.9 mg/dL (0.6-1.3); ESTIMATED GFR (MDRD EQUATION) > 60; POTASSIUM 3.8 mMol/L (3.7-5.1); SODIUM 141 mMol/L (135-145)
[2016-09-30 07:03] LABS: BASOPHIL # 0.1 K/uL (0.0-0.2); EOSINOPHIL # 0.2 K/uL (0.0-0.5); HEMATOCRIT 39.6 % (37.0-53.0); IMMATURE GRANULOCYTE # 0.1 K/uL (0.0-0.3); LYMPHOCYTE # 1.9 K/uL (0.8-4.0); LYMPHOCYTE % 22.9 %; MCH 29.3 pg (27.0-34.0); MCHC 32.8 gm/dL (32.0-36.5); MCV 89.4 fl (83.0-98.0); MONOCYTE # 0.8 K/uL (0.0-1.0); MONOCYTE % 9.3 %; MPV 10.9 fl (9.4-12.4); NEUTROPHIL # (ANC) 5.1 K/uL (1.4-9.0); NEUTROPHIL % 62.8 %; NRBC % 0 /100WBC (0-0.00); PLATELET COUNT 170 K/uL (150-450); RBC 4.43 M/uL (3.50-5.50); RDW-CV 14.5 % (11.9-14.6); WBC 8.1 K/uL (4.0-11.0)
[2016-09-30 07:19] LABS: ALBUMIN 2.8 gm/dL (3.5-5.0); BLOOD UREA NITROGEN 16 mg/dL (6-24); CHLORIDE 111 mMol/L (96-110); CO2 23 mMol/L (22-32); ESTIMATED GFR (MDRD EQUATION) > 60; PHOSPHORUS 2.9 mg/dL (2.5-4.9); SODIUM 144 mMol/L (135-145)
[2016-09-30 07:38] LABS: ANION GAP 13.9 (10.0-19.0); POTASSIUM 3.9 mMol/L (3.7-5.1)
[2016-10-02 03:42] LABS: BASOPHIL # 0.1 K/uL (0.0-0.2); EOSINOPHIL # 0.3 K/uL (0.0-0.5); EOSINOPHIL % 4.2 %; HEMATOCRIT 36.5 % (37.0-53.0); HEMOGLOBIN 12.1 g/dL (11.0-16.0); IMMATURE GRANULOCYTE # 0.1 K/uL (0.0-0.3); IMMATURE GRANULOCYTE % 1.3 %; LYMPHOCYTE # 2.4 K/uL (0.8-4.0); LYMPHOCYTE % 34.4 %; MCH 29.7 pg (27.0-34.0); MCHC 33.2 gm/dL (32.0-36.5); MCV 89.5 fl (83.0-98.0); MONOCYTE # 0.7 K/uL (0.0-1.0); MPV 10.5 fl (9.4-12.4); NEUTROPHIL # (ANC) 3.4 K/uL (1.4-9.0); NEUTROPHIL % 49.1 %; NRBC % 0 /100WBC (0-0.00); PLATELET COUNT 165 K/uL (150-450); RBC 4.08 M/uL (3.50-5.50); RDW-CV 14.5 % (11.9-14.6); WBC 6.9 K/uL (4.0-11.0)
[2016-10-02 03:59] LABS: ANION GAP 13.4 (10.0-19.0); BLOOD UREA NITROGEN 13 mg/dL (6-24); CALCIUM 8.4 mg/dL (8.5-10.5); CHLORIDE 110 mMol/L (96-110); CO2 23 mMol/L (22-32); CREATININE 1.1 mg/dL (0.6-1.3); ESTIMATED GFR (MDRD EQUATION) > 60; POTASSIUM 3.4 mMol/L (3.7-5.1); SODIUM 143 mMol/L (135-145)
[2016-10-02 15:35] LABS: BICARBONATE 22.9 mmol/L (18.0-23.0); PCO2 37 mmHg (35-45)
[2016-10-02 15:42] LABS: PO2 49 mmHg (80-90)
[2016-10-02 18:03] LABS: BILIRUBIN URINE NEGATIVE (NEGATIVE); BLOOD URINE NEGATIVE /UL (NEGATIVE); COLOR URINE YELLOW (YELLOW); GLUCOSE URINE NEGATIVE (NEGATIVE); KETONE URINE NEGATIVE (NEGATIVE); LEUKOCYTES URINE NEGATIVE /UL (NEGATIVE); NITRITE URINE NEGATIVE (NEGATIVE); PROTEIN URINE NEGATIVE (NEGATIVE); TURBIDITY URINE CLEAR (CLEAR); UROBILINOGEN URINE NORMAL (NORMAL)
[2016-10-03 04:26] LABS: ALBUMIN 2.8 gm/dL (3.5-5.0); ALK PHOS 56 IU/L (33-138); ALT 44 IU/L (12-78); ANION GAP 11.7 (10.0-19.0); AST 42 IU/L (10-40); BLOOD UREA NITROGEN 17 mg/dL (6-24); CALCIUM 8.1 mg/dL (8.5-10.5); CHLORIDE 112 mMol/L (96-110); CO2 24 mMol/L (22-32); ESTIMATED GFR (MDRD EQUATION) > 60; POTASSIUM 3.7 mMol/L (3.7-5.1); SODIUM 144 mMol/L (135-145); TOTAL BILIRUBIN 0.6 mg/dL (0.0-1.5)
[2016-10-03 11:47] LABS: HEMATOCRIT 35.3 % (37.0-53.0); MCH 29.3 pg (27.0-34.0); MCHC 32.3 gm/dL (32.0-36.5); MCV 90.7 fl (83.0-98.0); MPV 10.9 fl (9.4-12.4); RBC 3.89 M/uL (3.50-5.50); RDW-CV 14.6 % (11.9-14.6); WBC 11.8 K/uL (4.0-11.0)
[2016-10-03 11:48] LABS: PLATELET COUNT 203 K/uL (150-450)
[2016-10-03 11:49] LABS: HEMOGLOBIN 11.4 g/dL (11.0-16.0)
[2016-10-03 12:12] LABS: BICARBONATE 22.2 mmol/L (18.0-23.0); PCO2 43 mmHg (35-45); PO2 243 mmHg (80-90)
[2016-10-03 12:13] LABS: POTASSIUM 4.1 mEq/L (3.7-5.1); SODIUM 138 mEq/L (135-145)
[2016-10-03 12:14] LABS: BICARBONATE 23.5 mmol/L (18.0-23.0); PCO2 43 mmHg (35-45); PO2 221 mmHg (80-90)
[2016-10-03 12:15] LABS: POTASSIUM 3.6 mEq/L (3.7-5.1); SODIUM 141 mEq/L (135-145)
[2016-10-03 12:27] LABS: INR - (THERAPEUTIC) 1.3 (0.9-1.1); PROTIME 14.4 SECONDS (9.1-10.7); PTT > 260 SECONDS (23-30)
[2016-10-03 12:52] LABS: BICARBONATE 22.5 mmol/L (18.0-23.0); PCO2 39 mmHg (35-45)
[2016-10-03 12:54] LABS: PO2 94 mmHg (80-90)
[2016-10-03 13:09] LABS: ANION GAP 12.8 (10.0-19.0); BLOOD UREA NITROGEN 15 mg/dL (6-24); CHLORIDE 110 mMol/L (96-110); CO2 23 mMol/L (22-32); CREATININE 0.9 mg/dL (0.6-1.3); ESTIMATED GFR (MDRD EQUATION) > 60; POTASSIUM 3.8 mMol/L (3.7-5.1); SODIUM 142 mMol/L (135-145)
[2016-10-03 15:07] LABS: PTT > 300 SECONDS (25-32)
[2016-10-03 15:08] LABS: INR - (THERAPEUTIC) 1.2 (0.9-1.1); PROTIME 12.8 SECONDS (9.6-11.1)
[2016-10-03 19:43] LABS: CALCIUM 8.5 mg/dL (8.5-10.5); MAGNESIUM 1.6 mg/dL (1.3-2.6); POTASSIUM 3.8 mMol/L (3.7-5.1)
[2016-10-04 03:57] LABS: BICARBONATE 24.8 mmol/L (18.0-23.0); PCO2 40 mmHg (35-45)
[2016-10-04 03:58] LABS: PO2 70 mmHg (80-90)
[2016-10-04 04:23] LABS: ANION GAP 10.9 (10.0-19.0); BLOOD UREA NITROGEN 12 mg/dL (6-24); CALCIUM 8.6 mg/dL (8.5-10.5); CHLORIDE 109 mMol/L (96-110); CO2 26 mMol/L (22-32); ESTIMATED GFR (MDRD EQUATION) > 60; POTASSIUM 3.9 mMol/L (3.7-5.1); SODIUM 142 mMol/L (135-145)
[2016-10-04 05:36] LABS: HEMATOCRIT 33.9 % (37.0-53.0); MCH 29.4 pg (27.0-34.0); MCHC 32.4 gm/dL (32.0-36.5); MCV 90.6 fl (83.0-98.0); MPV 11.4 fl (9.4-12.4); RBC 3.74 M/uL (3.50-5.50); RDW-CV 14.9 % (11.9-14.6); WBC 9.2 K/uL (4.0-11.0)
[2016-10-05 10:16] LABS: POTASSIUM 3.7 mMol/L (3.7-5.1)
[2016-10-06 05:01] LABS: BASOPHIL # 0.1 K/uL (0.0-0.2); BASOPHIL % 0.6 %; EOSINOPHIL # 0.4 K/uL (0.0-0.5); EOSINOPHIL % 3.6 %; HEMATOCRIT 32.5 % (37.0-53.0); HEMOGLOBIN 10.2 g/dL (11.0-16.0); IMMATURE GRANULOCYTE # 0.3 K/uL (0.0-0.3); IMMATURE GRANULOCYTE % 3.2 %; LYMPHOCYTE # 1.3 K/uL (0.8-4.0); LYMPHOCYTE % 13.3 %; MCH 28.9 pg (27.0-34.0); MCHC 31.4 gm/dL (32.0-36.5); MCV 92.1 fl (83.0-98.0); MONOCYTE # 1.2 K/uL (0.0-1.0); MONOCYTE % 11.9 %; NEUTROPHIL # (ANC) 6.6 K/uL (1.4-9.0); NEUTROPHIL % 67.4 %; NRBC % 0 /100WBC (0-0.00); PLATELET COUNT 159 K/uL (150-450); RBC 3.53 M/uL (3.50-5.50); RDW-CV 15.3 % (11.9-14.6); WBC 9.7 K/uL (4.0-11.0)
[2016-10-06 05:08] LABS: ALBUMIN 2.7 gm/dL (3.5-5.0); ANION GAP 12.4 (10.0-19.0); BLOOD UREA NITROGEN 21 mg/dL (6-24); CALCIUM 8.4 mg/dL (8.5-10.5); CHLORIDE 106 mMol/L (96-110); CO2 28 mMol/L (22-32); CREATININE 1.1 mg/dL (0.6-1.3); ESTIMATED GFR (MDRD EQUATION) > 60; MAGNESIUM 2.1 mg/dL (1.3-2.6); PHOSPHORUS 3.1 mg/dL (2.5-4.9); POTASSIUM 4.4 mMol/L (3.7-5.1); SODIUM 142 mMol/L (135-145)
[2016-10-07] MEDS ORDERED: KEFLEX500 MG PO (11:48)
[2016-10-07] MEDS ORDERED: COLACE100 MG PO (11:51)
[2016-10-07] MEDS ORDERED: LASIX40 MG PO (11:55)
[2016-10-07] MEDS ORDERED: K-TAB 10MEQ10 MEQ PO (11:57)
[2016-10-07] MEDS ORDERED: HYDROCODON-ACE1 EAC4 PO (12:07)
== END 2016-10-07 12:55 | disposition disaster alternative care site (69) | DRG 234 ==
LOC: GPCU 11:12 → GICU 11:12 → GPCU 11:12 → GICU 10-03 07:54 → GPCU 10-04 13:07
PROVIDERS: Internal Medicine Interventional Cardiology; Thoracic Surgery (Cardiothoracic Vascular Surgery); ADMIT Internal Medicine Cardiovascular Disease
PROC: B2111ZZ Fluoroscopy of Multiple Coronary Arteries using Low Osmolar Contrast (ICD-10-PCS; 2016-09-29)
PROC: 02JA3ZZ Inspection of Heart, Percutaneous Approach (ICD-10-PCS; 2016-09-30)
PROC: 06BQ4ZZ Excision of Left Saphenous Vein, Percutaneous Endoscopic Approach (ICD-10-PCS; principal; 2016-10-03)
PROC: B24BZZ4 Ultrasonography of Heart with Aorta, Transesophageal (ICD-10-PCS; principal; 2016-10-03)
PROC: 03HY32Z Insertion of Monitoring Device into Upper Artery, Percutaneous Approach (ICD-10-PCS; principal; 2016-10-03)
PROC: 021009W Bypass Coronary Artery, One Artery from Aorta with Autologous Venous Tissue, Open Approach (ICD-10-PCS; principal; 2016-10-03)
PROC: B548ZZA Ultrasonography of Superior Vena Cava, Guidance (ICD-10-PCS; principal; 2016-10-03)
PROC: 02HV33Z Insertion of Infusion Device into Superior Vena Cava, Percutaneous Approach (ICD-10-PCS; principal; 2016-10-03)
DX: I21.11 ST elevation (STEMI) myocardial infarction involving right coronary artery (principal); I48.0 Paroxysmal atrial fibrillation; I25.10 Atherosclerotic heart disease of native coronary artery without angina pectoris; I10 Essential (primary) hypertension; Z95.5 Presence of coronary angioplasty implant and graft; E78.5 Hyperlipidemia, unspecified; Z79.01 Long term (current) use of anticoagulants; G47.00 Insomnia, unspecified; K21.9 Gastro-esophageal reflux disease without esophagitis; M19.90 Unspecified osteoarthritis, unspecified site; Z96.652 Presence of left artificial knee joint; Z87.442 Personal history of urinary calculi; Z79.82 Long term (current) use of aspirin; G47.33 Obstructive sleep apnea (adult) (pediatric); Z79.899 Other long term (current) drug therapy
CPT/HCPCS: C1760; C1769; C1887; C1894; J0282; J0461; J0583; J0690; J1265; J1644; J1650; J1885; J2250; J2270; J2370; J2405; J2440; J2720; J3010; J3475; J3480; J3490; J7030; J7040; J7050; J7060; J7121; J7612; P9045